=== PATIENT | female | born 1970 | race Caucasian/White ===

== ENCOUNTER → 2016-07-27 | Outpatient (CLI) | payer BC, OTHER ==
[~2016-07-27] MED LIST: ASCO-324 PO; CALC-52 PO; CHOL50006 PO; CITA40TA14 PO; HYDR-4246 PO; MULT1CAP32 PO; VITA1CAP PO; [UNRECOGNIZED DRUG - CODE] PO
== END ==
LOC: WC.BC 10:51
DX: Z12.31 Encounter for screening mammogram for malignant neoplasm of breast (principal)
CPT/HCPCS: 77063; G0202